=== PATIENT | female | born 1945 | race African-American/Black ===

== ENCOUNTER 2017-08-26 05:22 | Day surgery (SDC) | payer MEDICARE, OTHER ==
[~2017-08-26] VITALS: Ht 170.2 cm; Wt 93.4 kg
[~2017-08-26 05:22] MED LIST: ASPIRIN PO; CLOP75TA16 PO; FURO-152 PO; KV10 PO
[2017-08-26] MEDS ORDERED: SODIUM CHLORIDE 0.9% 1,000 ML IV SCH ×2 (06:40→09:08)
[2017-08-26 06:42] LABS: CLARITY URINE CLOUDY (CLEAR); COLOR URINE YELLOW (YELLOW); GLUCOSE URINE NEGATIVE (NEGATIVE); KETONES URINE NEGATIVE (NEGATIVE); LEUKOCYTE ESTERASE URINE 2+ (NEGATIVE); NITRITE URINE POSITIVE (NEGATIVE); OCCULT BLOOD URINE TRACE (NEGATIVE); PROTEIN URINE 1+ (NEGATIVE); SPECIFIC GRAVITY URINE 1.019 (1.005-1.030); UROBILINOGEN URINE 0.2 E.U./dL (0.2-1.0)
[2017-08-26 06:50] LABS: PARTIAL THROMBOPLASTIN TIME 23.6 sec (23.4-31.0); PROTHROMBIN TIME 10.6 sec (9.4-11.6)
[2017-08-26] MEDS ORDERED: MORPHINE SULFATE/PF 1MG/ML 10ML AMP ONE (07:33)
[2017-08-26] MEDS ORDERED: EPINEPHRINE 1:1000 1 MG/ML AMP ONE (07:34)
[2017-08-26] MEDS ORDERED: BUPIVACAINE/EPINEPHRINE/PF 0.25%/0.0005 30ML ONE (07:34)
[2017-08-26] MEDS ORDERED: CLINDAMYCIN 900 MG in DEXTROSE 5% WATER 50 ML IV NR (07:50)
[2017-08-26] MEDS ORDERED: ERGO400T7 PO (08:17)
[2017-08-26] MEDS ORDERED: FOLI-43 PO (08:17)
[2017-08-26] MEDS ORDERED: PYRI50TA9 PO (08:17)
[2017-08-26] MEDS ORDERED: HYDR-519 PO (08:17)
[2017-08-26] MEDS ORDERED: MIDAZOLAM HCL 2 MG/2 ML VIAL ONE (08:19)
[2017-08-26] MEDS ORDERED: LIDOCAINE HCL 1% 20ML VIAL (Pyxis) INJ ONE (08:20)
[2017-08-26] MEDS ORDERED: PROPOFOL 200MG/20ML VIAL IV ONE (08:20)
[2017-08-26] MEDS ORDERED: FENTANYL CITRATE/PF 50MCG/ML 2ML VIAL ONE (08:33)
[2017-08-26] MEDS ORDERED: ONDANSETRON HCL 4MG/2ML VIAL ONE (08:48)
[2017-08-26] MEDS ORDERED: DEXAMETHASONE 4MG/ML 1ML VIAL ONE (08:48)
[2017-08-26 09:03] LABS: CLARITY URINE CLEAR (CLEAR); COLOR URINE YELLOW (YELLOW); GLUCOSE URINE NEGATIVE (NEGATIVE); KETONES URINE NEGATIVE (NEGATIVE); LEUKOCYTE ESTERASE URINE 2+ (NEGATIVE); NITRITE URINE NEGATIVE (NEGATIVE); OCCULT BLOOD URINE NEGATIVE (NEGATIVE); PROTEIN URINE NEGATIVE (NEGATIVE); SPECIFIC GRAVITY URINE 1.018 (1.005-1.030); UROBILINOGEN URINE 0.2 E.U./dL (0.2-1.0)
[2017-08-26] MEDS ORDERED: HYDROMORPHONE HCL/PF 2MG/ML CPJ IV PRN (09:15)
[2017-08-26] MEDS ORDERED: ONDANSETRON HCL 4MG/2ML VIAL IV PRN ×2 (09:15→10:30)
[2017-08-26] MEDS ORDERED: BUPIVACAINE/EPINEPH/PF 0.25%/0.0005 10ML ONE (09:33)
[2017-08-26] MEDS ORDERED: HYDROCODONE/ACETAMINOPHEN 5/325MG TABLET PO PRN (10:30)
== END 2017-08-26 12:30 | disposition home or self-care (01) ==
LOC: OR 05:22
PROVIDERS: ATTEND Orthopaedic Surgery
DX: M23.221 Derangement of posterior horn of medial meniscus due to old tear or injury, right knee (principal); M65.861 Other synovitis and tenosynovitis, right lower leg; M22.41 Chondromalacia patellae, right knee; M79.4 Hypertrophy of (infrapatellar) fat pad; M94.261 Chondromalacia, right knee; Z90.710 Acquired absence of both cervix and uterus; E66.3 Overweight; K21.9 Gastro-esophageal reflux disease without esophagitis; I73.9 Peripheral vascular disease, unspecified; Z88.0 Allergy status to penicillin
CPT/HCPCS: 29879; 29881; 36415; 81001; 85610; 85730; 87077; 87086; 87186; 88304; 88311; 97116; 97162; J0171; J1100; J2250; J2405; J3010; J3490; J7030; L1830; J2274; J2704; J7060

== ENCOUNTER → 2025-09-16 | Day surgery (SDC) | payer MEDICARE, OTHER ==
[~2025-09-16] VITALS: Ht 170.2 cm; Wt 81.6 kg
[~2025-09-16] MED LIST changes: +CLOP-31 PO; -CLOP75TA16 PO; +ERGO400T7 PO; +FOLI-43 PO; +HYDR-519 PO; +HYDRALAZINE 20MG/ML VIAL ONE; +LACTATED RINGERS 1,000 ML IV SCH; +ONDANSETRON HCL 4MG/2ML INJ IV PRN; +PROPOFOL 200MG/20ML VIAL IV ONE; +PYRI-7 PO; +SIMETHICONE 40 MG/0.6 ML 15ML ONE
[2025-09-16 09:33] LABS: BASOPHILS % 2.5 % (0.0-2.0); EOSINOPHILS % 1.9 % (0.0-5.0); HEMATOCRIT. 36.9 % (36.0-48.0); HEMOGLOBIN. 12.5 g/dL (12.0-16.0); LYMPHOCYTES % 40.9 % (20.0-50.0); MEAN PLATELET VOLUME 8.1 fl (7.4-10.4); MONOCYTES % 6.2 % (2.0-8.0); NEUTROPHILS % 48.5 % (40.0-76.0); PLATELET 231 x1000/uL (130-400); RED BLOOD CELL COUNT 3.86 mill/uL (4.2-5.4); RED CELL DISTRIBUTION WIDTH 13.5 % (11.6-14.6)
[2025-09-16 09:53] LABS: CREATININE 0.9 mg/dL (0.6-1.0); UREA NITROGEN BLOOD 6 mg/dL (9-23)
== END | disposition home or self-care (01) ==
LOC: OR 08:56
PROVIDERS: ATTEND Internal Medicine Gastroenterology
DX: K62.5 Hemorrhage of anus and rectum (principal); R10.9 Unspecified abdominal pain; K57.30 Diverticulosis of large intestine without perforation or abscess without bleeding; K63.89 Other specified diseases of intestine; I10 Essential (primary) hypertension; I25.10 Atherosclerotic heart disease of native coronary artery without angina pectoris; Z86.0100 Personal history of colon polyps, unspecified; Z79.899 Other long term (current) drug therapy; Z98.890 Other specified postprocedural states; Z88.0 Allergy status to penicillin; Z88.8 Allergy status to other drugs, medicaments and biological substances
CPT/HCPCS: 45378; 80048; 85025; 36415; J0360; J2704